=== PATIENT | male | born 1950 | race African-American/Black ===

== ENCOUNTER 2018-09-20 10:46 | Inpatient (IN) ==
[2018-09-20] MEDS ORDERED: ONDANSETRON 4 MG/2 ML VIAL IV STA (11:16)
[2018-09-20] MEDS ORDERED: fentaNYL 100 MCG/2 ML VIAL IV STA (11:20)
[2018-09-20 12:28] LABS: Basophils % 0.2 % (0.0-0.8); Hemoglobin 14.3 GM/DL (14.0-18.0); Immature Granulocytes % 0.5 %; Immature Granulocytes Absolute 0.06 #; Lymphocytes # 0.3 10*3/uL (1.4-4.0); Mean Corpuscular HGB Conc 33.3 GM/DL (32-36); Mean Corpuscular Hemoglobin 30 PG (27-34); Mean Corpuscular Volume 90.9 FL (87-102); Mean Platelet Volume 10.9 FL (9.6-12.0); Monocytes # 0.5 10*3/uL (0.11-0.8); Neutrophils # 10.3 10*3/uL (1.4-7.4); Neutrophils % 92.3 % (38.7-73.9); Platelet Count 149 T/CUMM (130-400); Red Blood Count 4.73 MC/CUMM (3.8-5.5); Red Cell Distribution Width 12.2 % (9.3-17.3); White Blood Count 11.1 T/CUMM (4-12)
[2018-09-20 12:39] LABS: PT Patient Result 10.5 SECS; Partial Thromboplastin Time 27.5 SECS (0-40)
[2018-09-20] MEDS: THIAMINE INJ 100 MG, FOLIC ACID INJ 1 MG, MULTIVITAMIN INJ 10 ML in SODIUM CHLORIDE 0.9... IV SCH (12:46)
[2018-09-20 12:50] LABS: Alanine Aminotransferase 20 U/L (16-61); Albumin 3.2 G/DL (3.4-5.0); Alkaline Phosphatase 98 U/L (45-117); Aspartate Amino Transferase 35 U/L (0-37); Blood Urea Nitrogen 18 MG/DL (7-18); CKMB % 1.3 %; Calcium 8.4 MG/DL (8.5-10.1); Glucose 152 MG/DL (74-106); Osmolality,Calculated 287.1 MOS/KG (273-304); Potassium 3.6 MMOL/L (3.5-5.1); Sodium 142 MMOL/L (136-145); Total Protein 7.7 G/DL (6.4-8.3)
[2018-09-20 13:04] LABS: Band Neutrophils 2 % (0-10); Eosinophils 1 % (0-10); Lymphocytes 1 % (20-55); Segmented Neutrophils 96 % (50-85); Total Cells Counted 100
[2018-09-20 13:05] LABS: Hypochromasia Slight; Platelet Estimate Adequate
[2018-09-20] MEDS ORDERED: DIAZEPAM 10 MG/2 ML SYRINGE IV PRN (13:16)
[2018-09-20] MEDS ORDERED: DIAZEPAM 5 MG TABLET PO PRN (13:16)
[2018-09-20] MEDS ORDERED: ONDANSETRON 4 MG/2 ML VIAL IV PRN (13:20)
[2018-09-20] MEDS ORDERED: MORPHINE 4 MG/1 ML VIAL IV PRN ×2 (13:20→14:44)
[2018-09-20] MEDS ORDERED: PROMETHAZINE 25 MG/1 ML VIAL IM PRN (13:20)
[2018-09-20] MEDS ORDERED: SODIUM CHLORIDE 0.9% 1,000 ML IV SCH (13:30)
[2018-09-20 14:04] LABS: Risk Ratio 5.39; Thyroid Stimulating Hormone 1.77 uIU/ml (0.358-3.74)
[2018-09-20 14:15] LABS: Folate 5.8 NG/ML (5.4-24.0)
[2018-09-20] MEDS ORDERED: MAGNESIUM HYDROXIDE SUSP 30 ML UDCUP PO PRN (14:44)
[2018-09-20] MEDS ORDERED: BISACODYL 5 MG TABLET PO PRN (14:44)
[2018-09-20] MEDS ORDERED: ALUM/MAG/SIMETH/LIDO VISC 1:1 30 ML BOTTLE PO PRN (14:44)
[2018-09-20 14:46] LABS: Apearance,Urine Slightly Hazy (Clear); Bacteria,Urine Occasional /HPF (Few); Bilirubin,Urine Negative (Negative); Blood, Urine Moderate mg/dL (Negative); Glucose,Urine (UA) Negative (Negative); Ketones,Urine Negative (Negative); Mucus,Urine Occasional /LPF (Occasional); Nitrite,Urine Negative (Negative); Protein,Urine >=500 MG/DL; RBC,Urine 2 /HPF (0-4); Sperm,Urine Few /HPF (Negative); Urine Color Yellow (Yellow); Urine Specific Gravity 1.016 (1.001-1.035); Urine Urobilinogen < 2.0 EU/DL (0.2-1.0); WBC,Urine 3 /HPF (0-6)
[2018-09-20 14:54] LABS: Barbiturates Screen,Urine Negative (Negative); Benzodiazepines Screen,Urine Negative (Negative); Cannabinoid Screen,Urine Positive (Negative); Opiate Screen,Urine Negative (Negative); Phencyclidine Screen,Urine Negative (Negative)
[2018-09-20] MEDS ORDERED: SODIUM CHLORIDE 0.45% 1,000 ML IV SCH (15:00)
[2018-09-20] MEDS ORDERED: chlordiazePOXIDE 25 MG CAPSULE PO SCH (16:00)
[2018-09-20] MEDS: SODIUM CHLORIDE 0.9% 1,000 ML IV SCH (17:03)
[2018-09-20] MEDS ORDERED: METOPROLOL TARTRATE 50 MG TABLET PO ONE (17:05)
[2018-09-20] MEDS ORDERED: METOPROLOL TARTRATE 50 MG TABLET PO SCH (21:00)
[2018-09-20] MEDS ORDERED: CARVEDILOL 3.125 MG TABLET PO SCH (21:00)
[2018-09-20] MEDS: hydroCHLOROthiazide 25 MG TABLET PO SCH (21:31)
[2018-09-20] MEDS: METOPROLOL TARTRATE 50 MG TABLET PO SCH (21:31)
[2018-09-20] MEDS: ATORVASTATIN 40 MG TABLET PO SCH (21:31)
[2018-09-20] MEDS: ENOXAPARIN 40 MG/0.4 ML SYRINGE SUBCUT SCH (21:31)
[2018-09-21] MEDS: SODIUM CHLORIDE 0.9% 1,000 ML IV SCH ×4 (01:05→18:19)
[2018-09-21 04:27] LABS: Basophils % 0.2 % (0.0-0.8); Eosinophils % 0.1 % (0.00-10.9); Hematocrit 39.9 VOL% (42.0-52.0); Immature Granulocytes % 0.3 %; Immature Granulocytes Absolute 0.03 #; Lymphocytes # 0.9 10*3/uL (1.4-4.0); Lymphocytes % 9.5 % (21.2-54.2); Mean Corpuscular HGB Conc 32.6 GM/DL (32-36); Mean Corpuscular Hemoglobin 30 PG (27-34); Mean Corpuscular Volume 91.9 FL (87-102); Mean Platelet Volume 11.3 FL (9.6-12.0); Monocytes # 0.6 10*3/uL (0.11-0.8); Monocytes % 6.5 % (1.7-12.7); Neutrophils # 8.3 10*3/uL (1.4-7.4); Neutrophils % 83.4 % (38.7-73.9); Platelet Count 132 T/CUMM (130-400); Red Blood Count 4.34 MC/CUMM (3.8-5.5); Red Cell Distribution Width 12.4 % (9.3-17.3); White Blood Count 9.9 T/CUMM (4-12)
[2018-09-21 04:55] LABS: Albumin 2.6 G/DL (3.4-5.0); Bilirubin,Total 1.4 MG/DL (0.2-1.0); Osmolality,Calculated 283.1 MOS/KG (273-304); Potassium 3.5 MMOL/L (3.5-5.1); Total Protein 6.7 G/DL (6.4-8.3)
[2018-09-21 05:05] LABS: Calcium 7.8 MG/DL (8.5-10.1); Potassium 3.7 MMOL/L (3.5-5.1)
[2018-09-21] MEDS ORDERED: LOSARTAN 25 MG TABLET PO SCH (09:00)
[2018-09-21] MEDS ORDERED: CLOPIDOGREL 75 MG TABLET PO SCH (09:00)
[2018-09-21] MEDS ORDERED: POTASSIUM CHLORIDE RIDER 10 MEQ in PREMIX 1 EACH IV PRN (11:37)
[2018-09-21] MEDS ORDERED: MAGNESIUM SULF RIDER 2 GM in PREMIX 1 EACH IV PRN (11:37)
[2018-09-21] MEDS ORDERED: DIAZEPAM 5 MG TABLET PO ONE (11:37)
[2018-09-21] MEDS ORDERED: diphenhydrAMINE CAP 25 MG CAPSULE PO ONE (11:37)
[2018-09-21] MEDS ORDERED: LIDOCAINE 1% 20 ML VIAL ONE (12:15)
[2018-09-21] MEDS ORDERED: HEPARIN/NACL 0.9% 2 UNITS/ML 1,000 ML IV ONE (12:15)
[2018-09-21] MEDS: MULTIVITAMIN (CENTRUM) TABLET PO SCH (12:22)
[2018-09-21] MEDS: METOPROLOL TARTRATE 50 MG TABLET PO SCH ×2 (12:22→22:27)
[2018-09-21] MEDS: ISOSORBIDE MONONITRATE 30 MG TABLET PO SCH (12:23)
[2018-09-21] MEDS: ASPIRIN EC 81 MG TABLET PO SCH (12:23)
[2018-09-21] MEDS: PANTOPRAZOLE 40 MG TABLET PO SCH (12:23)
[2018-09-21] MEDS: FOLIC ACID 1 MG TABLET PO SCH (12:34)
[2018-09-21] MEDS: ENOXAPARIN 40 MG/0.4 ML SYRINGE SUBCUT SCH ×2 (12:34→22:27)
[2018-09-21] MEDS: hydroCHLOROthiazide 25 MG TABLET PO SCH ×2 (12:41→22:25)
[2018-09-21] MEDS ORDERED: MIDAZOLAM 2 MG/2 ML VIAL ONE (13:01)
[2018-09-21] MEDS ORDERED: HYDROmorphone 2 MG/1 ML VIAL ONE (13:01)
[2018-09-21] MEDS ORDERED: ZALEPLON 5 MG CAPSULE PO PRN (13:39)
[2018-09-21] MEDS: THIAMINE INJ 100 MG, FOLIC ACID INJ 1 MG, MULTIVITAMIN INJ 10 ML in SODIUM CHLORIDE 0.9... IV SCH (14:22)
[2018-09-21] MEDS: oxyCODONE/ACETAMINOPHEN 5-325 MG TABLET PO PRN (22:26)
[2018-09-21] MEDS: ATORVASTATIN 40 MG TABLET PO SCH (22:26)
[2018-09-22] MEDS: SODIUM CHLORIDE 0.9% 1,000 ML IV SCH ×4 (04:20→17:14)
[2018-09-22 04:30] LABS: Basophils % 0.2 % (0.0-0.8); Hematocrit 38.2 VOL% (42.0-52.0); Hemoglobin 12.3 GM/DL (14.0-18.0); Immature Granulocytes % 0.5 %; Immature Granulocytes Absolute 0.08 #; Lymphocytes # 0.8 10*3/uL (1.4-4.0); Lymphocytes % 5.1 % (21.2-54.2); Mean Corpuscular HGB Conc 32.2 GM/DL (32-36); Mean Corpuscular Hemoglobin 30 PG (27-34); Mean Corpuscular Volume 93.4 FL (87-102); Mean Platelet Volume 10.7 FL (9.6-12.0); Monocytes # 0.7 10*3/uL (0.11-0.8); Monocytes % 4.1 % (1.7-12.7); Neutrophils # 14.3 10*3/uL (1.4-7.4); Neutrophils % 90.1 % (38.7-73.9); Platelet Count 112 T/CUMM (130-400); Red Blood Count 4.09 MC/CUMM (3.8-5.5); Red Cell Distribution Width 12.5 % (9.3-17.3); White Blood Count 15.8 T/CUMM (4-12)
[2018-09-22 04:56] LABS: Blood Urea Nitrogen 22 MG/DL (7-18); Glucose 93 MG/DL (74-106); Osmolality,Calculated 281.4 MOS/KG (273-304); Potassium 4.1 MMOL/L (3.5-5.1); Sodium 140 MMOL/L (136-145)
[2018-09-22 05:06] LABS: Troponin I 0.413 NG/ML (0.00-0.045)
[2018-09-22 05:13] LABS: Platelet Estimate Decreased; Polychromasia Few
[2018-09-22] MEDS: ENOXAPARIN 40 MG/0.4 ML SYRINGE SUBCUT SCH ×2 (08:15→20:25)
[2018-09-22] MEDS: hydroCHLOROthiazide 25 MG TABLET PO SCH (09:10)
[2018-09-22] MEDS: MULTIVITAMIN (CENTRUM) TABLET PO SCH (09:10)
[2018-09-22] MEDS: PANTOPRAZOLE 40 MG TABLET PO SCH (09:10)
[2018-09-22] MEDS: FOLIC ACID 1 MG TABLET PO SCH (09:11)
[2018-09-22] MEDS: METOPROLOL TARTRATE 50 MG TABLET PO SCH ×2 (09:11→20:26)
[2018-09-22] MEDS: ASPIRIN EC 81 MG TABLET PO SCH (09:11)
[2018-09-22] MEDS: ISOSORBIDE MONONITRATE 30 MG TABLET PO SCH (09:11)
[2018-09-22] MEDS: oxyCODONE/ACETAMINOPHEN 5-325 MG TABLET PO PRN (09:15)
[2018-09-22 10:24] LABS: Albumin 2.3 G/DL (3.4-5.0); Bilirubin,Total 1.5 MG/DL (0.2-1.0); Calcium 7.9 MG/DL (8.5-10.1); Osmolality,Calculated 280.4 MOS/KG (273-304); Potassium 4.2 MMOL/L (3.5-5.1); Total Protein 6.9 G/DL (6.4-8.3)
[2018-09-22] MEDS ORDERED: ceFAZolin 1,000 MG VIAL ONE (15:29)
[2018-09-22] MEDS ORDERED: PROPOFOL 200 MG/20 ML VIAL IV ONE (17:06)
[2018-09-22] MEDS ORDERED: PHENYLEPHRINE DRIP 20 MG/250 ML PREMIX IV ONE (17:06)
[2018-09-22] MEDS ORDERED: SEVOFLURANE 1 UNIT/15 MINUTE INH ONE (17:06)
[2018-09-22] MEDS ORDERED: fentaNYL 100 MCG/2 ML VIAL ONE (17:06)
[2018-09-22] MEDS ORDERED: PHENYLEPHRINE 1 MG/10 ML SYRINGE IV ONE (17:07)
[2018-09-22] MEDS ORDERED: ONDANSETRON 4 MG/2 ML VIAL ONE (17:07)
[2018-09-22] MEDS ORDERED: ETOMIDATE 40 MG/20 ML VIAL IV ONE (17:07)
[2018-09-22] MEDS: THIAMINE INJ 100 MG, FOLIC ACID INJ 1 MG, MULTIVITAMIN INJ 10 ML in SODIUM CHLORIDE 0.9... IV SCH (19:11)
[2018-09-22] MEDS: ATORVASTATIN 40 MG TABLET PO SCH (20:26)
[2018-09-23] MEDS: SODIUM CHLORIDE 0.9% 1,000 ML IV SCH ×4 (04:37→15:47)
[2018-09-23 04:55] LABS: Basophils % 0.3 % (0.0-0.8); Eosinophils % 0.1 % (0.00-10.9); Hematocrit 35.2 VOL% (42.0-52.0); Hemoglobin 11.3 GM/DL (14.0-18.0); Immature Granulocytes % 0.6 %; Immature Granulocytes Absolute 0.07 #; Lymphocytes # 0.7 10*3/uL (1.4-4.0); Lymphocytes % 6.4 % (21.2-54.2); Mean Corpuscular HGB Conc 32.1 GM/DL (32-36); Mean Corpuscular Hemoglobin 30 PG (27-34); Mean Corpuscular Volume 92.1 FL (87-102); Mean Platelet Volume 11.7 FL (9.6-12.0); Monocytes # 0.6 10*3/uL (0.11-0.8); Monocytes % 5.4 % (1.7-12.7); Neutrophils # 10.1 10*3/uL (1.4-7.4); Neutrophils % 87.2 % (38.7-73.9); Platelet Count 115 T/CUMM (130-400); Red Blood Count 3.82 MC/CUMM (3.8-5.5); Red Cell Distribution Width 12.6 % (9.3-17.3); White Blood Count 11.6 T/CUMM (4-12)
[2018-09-23 05:11] LABS: Albumin 2.1 G/DL (3.4-5.0); Calcium 7.7 MG/DL (8.5-10.1); Osmolality,Calculated 286.3 MOS/KG (273-304); Potassium 3.5 MMOL/L (3.5-5.1); Total Protein 6.4 G/DL (6.4-8.3)
[2018-09-23 05:55] LABS: Band Neutrophils 1 % (0-10); Hypochromasia 1+; Lymphocytes 5 % (20-55); Microcytosis 1+; Segmented Neutrophils 90 % (50-85); Total Cells Counted 100
[2018-09-23 05:56] LABS: Platelet Estimate Adequate
[2018-09-23] MEDS: METOPROLOL TARTRATE 50 MG TABLET PO SCH ×2 (07:55→10:27)
[2018-09-23] MEDS ORDERED: METOPROLOL TARTRATE 5 MG/5 ML VIAL IV ONE ×2 (07:59→08:07)
[2018-09-23 10:18] LABS: Hepatitis B Surface Ab Result Positive; Hepatitis B Surface Ag Quant < 0.10 Index; Hepatitis B Surface Ag Result Negative (Negative)
[2018-09-23] MEDS: POTASSIUM CHLORIDE 20 MEQ TABLET PO PRN (10:26)
[2018-09-23] MEDS: MULTIVITAMIN (CENTRUM) TABLET PO SCH (10:26)
[2018-09-23] MEDS: FOLIC ACID 1 MG TABLET PO SCH (10:26)
[2018-09-23] MEDS: ISOSORBIDE MONONITRATE 30 MG TABLET PO SCH (10:26)
[2018-09-23] MEDS: ASPIRIN EC 81 MG TABLET PO SCH (10:27)
[2018-09-23] MEDS: ENOXAPARIN 40 MG/0.4 ML SYRINGE SUBCUT SCH ×2 (10:27→21:09)
[2018-09-23] MEDS: PANTOPRAZOLE 40 MG TABLET PO SCH (10:28)
[2018-09-23] MEDS: ASCORBIC ACID 500 MG TABLET PO SCH ×2 (10:32→21:09)
[2018-09-23] MEDS ORDERED: METOPROLOL TARTRATE 50 MG TABLET PO ONE (10:57)
[2018-09-23] MEDS: FUROSEMIDE 40 MG/4 ML VIAL IV SCH (11:21)
[2018-09-23] MEDS ORDERED: SODIUM CHLORIDE 0.9% 1,000 ML IV SCH (11:30)
[2018-09-23 11:38] LABS: HIV Antigen/Antibody Result Nonreactive (Nonreactive)
[2018-09-23] MEDS: cefTRIAXone 1,000 MG in SYRINGE 1 EACH IV SCH (12:52)
[2018-09-23 13:46] LABS: Rapid Plasma Reagin Confirm NONREACTIVE (Nonreactive)
[2018-09-23] MEDS: ATORVASTATIN 40 MG TABLET PO SCH (21:09)
[2018-09-23] MEDS: METOPROLOL TARTRATE 100 MG TABLET PO SCH (21:09)
[2018-09-24 04:35] LABS: Basophils % 0.2 % (0.0-0.8); Eosinophils # 0.1 10*3/uL (0.0-0.87); Eosinophils % 1.2 % (0.00-10.9); Hematocrit 32.8 VOL% (42.0-52.0); Hemoglobin 10.6 GM/DL (14.0-18.0); Immature Granulocytes % 0.5 %; Immature Granulocytes Absolute 0.06 #; Lymphocytes # 1.2 10*3/uL (1.4-4.0); Lymphocytes % 11.3 % (21.2-54.2); Mean Corpuscular HGB Conc 32.3 GM/DL (32-36); Mean Corpuscular Hemoglobin 30 PG (27-34); Mean Corpuscular Volume 91.4 FL (87-102); Mean Platelet Volume 11.4 FL (9.6-12.0); Monocytes # 0.8 10*3/uL (0.11-0.8); Monocytes % 7.5 % (1.7-12.7); Neutrophils # 8.7 10*3/uL (1.4-7.4); Neutrophils % 79.3 % (38.7-73.9); Platelet Count 121 T/CUMM (130-400); Red Blood Count 3.59 MC/CUMM (3.8-5.5); Red Cell Distribution Width 12.8 % (9.3-17.3); White Blood Count 10.9 T/CUMM (4-12)
[2018-09-24 04:57] LABS: Calcium 7.8 MG/DL (8.5-10.1); Osmolality,Calculated 288.3 MOS/KG (273-304); Potassium 3.4 MMOL/L (3.5-5.1); Total Protein 6.7 G/DL (6.4-8.3)
[2018-09-24] MEDS: SODIUM CHLORIDE 0.9% 1,000 ML IV SCH ×3 (05:10→22:16)
[2018-09-24] MEDS: PANTOPRAZOLE 40 MG TABLET PO SCH (08:56)
[2018-09-24] MEDS: FOLIC ACID 1 MG TABLET PO SCH (08:56)
[2018-09-24] MEDS: MULTIVITAMIN (CENTRUM) TABLET PO SCH (08:57)
[2018-09-24] MEDS: ISOSORBIDE MONONITRATE 30 MG TABLET PO SCH (08:57)
[2018-09-24] MEDS: ENOXAPARIN 40 MG/0.4 ML SYRINGE SUBCUT SCH ×2 (08:57→22:14)
[2018-09-24] MEDS: FUROSEMIDE 40 MG/4 ML VIAL IV SCH (08:57)
[2018-09-24] MEDS: METOPROLOL TARTRATE 100 MG TABLET PO SCH ×2 (08:57→22:14)
[2018-09-24] MEDS: ASPIRIN EC 81 MG TABLET PO SCH (08:57)
[2018-09-24] MEDS: ASCORBIC ACID 500 MG TABLET PO SCH ×2 (08:57→22:14)
[2018-09-24] MEDS: cefTRIAXone 1,000 MG in SYRINGE 1 EACH IV SCH (14:39)
[2018-09-24] MEDS: POTASSIUM CHLORIDE 20 MEQ TABLET PO PRN ×2 (15:35→17:43)
[2018-09-24] MEDS: ATORVASTATIN 40 MG TABLET PO SCH (22:14)
[2018-09-25 04:21] LABS: Osmolality,Calculated 288.3 MOS/KG (273-304)
[2018-09-25] MEDS ORDERED: DILTIAZEM 50 MG/10 ML VIAL IV ONE (08:53)
[2018-09-25] MEDS ORDERED: dilTIAZem Drip 125 MG/125 ML PREMIX IV ONE (08:54)
[2018-09-25] MEDS: dilTIAZem Drip 125 MG/125 ML PREMIX IV SCH (09:10)
[2018-09-25] MEDS: FOLIC ACID 1 MG TABLET PO SCH (09:20)
[2018-09-25] MEDS: ASCORBIC ACID 500 MG TABLET PO SCH ×2 (09:20→21:56)
[2018-09-25] MEDS: PANTOPRAZOLE 40 MG TABLET PO SCH (09:20)
[2018-09-25] MEDS: ISOSORBIDE MONONITRATE 30 MG TABLET PO SCH (09:20)
[2018-09-25] MEDS: MULTIVITAMIN (CENTRUM) TABLET PO SCH (09:20)
[2018-09-25] MEDS: ASPIRIN EC 81 MG TABLET PO SCH (09:20)
[2018-09-25] MEDS: METOPROLOL TARTRATE 100 MG TABLET PO SCH ×2 (09:20→21:56)
[2018-09-25] MEDS: APIXABAN 2.5 MG TABLET PO SCH ×2 (09:20→21:57)
[2018-09-25] MEDS: FUROSEMIDE 40 MG/4 ML VIAL IV SCH (09:24)
[2018-09-25] MEDS: SODIUM CHLORIDE 0.9% 1,000 ML IV SCH ×3 (10:58→21:58)
[2018-09-25 12:07] LABS: Apearance,Urine Slightly Hazy (Clear); Bilirubin,Urine Negative (Negative); Blood, Urine Large mg/dL (Negative); Glucose,Urine (UA) Negative (Negative); Ketones,Urine Negative (Negative); Nitrite,Urine Negative (Negative); Protein,Urine 100 MG/DL; RBC,Urine 213 /HPF (0-4); Urine Color Yellow (Yellow); Urine Specific Gravity 1.008 (1.001-1.035); Urine Urobilinogen < 2.0 EU/DL (0.2-1.0); WBC,Urine 7 /HPF (0-6)
[2018-09-25] MEDS: cefTRIAXone 1,000 MG in SYRINGE 1 EACH IV SCH (14:44)
[2018-09-25] MEDS: ATORVASTATIN 40 MG TABLET PO SCH (21:57)
[2018-09-26 05:09] LABS: Basophils % 0.2 % (0.0-0.8); Eosinophils # 0.1 10*3/uL (0.0-0.87); Eosinophils % 0.9 % (0.00-10.9); Hematocrit 29.8 VOL% (42.0-52.0); Hemoglobin 9.6 GM/DL (14.0-18.0); Immature Granulocytes % 2.7 %; Immature Granulocytes Absolute 0.38 #; Lymphocytes # 1.8 10*3/uL (1.4-4.0); Lymphocytes % 12.5 % (21.2-54.2); Mean Corpuscular HGB Conc 32.2 GM/DL (32-36); Mean Corpuscular Hemoglobin 30 PG (27-34); Mean Platelet Volume 11.4 FL (9.6-12.0); Monocytes # 1.4 10*3/uL (0.11-0.8); Monocytes % 9.9 % (1.7-12.7); Neutrophils # 10.3 10*3/uL (1.4-7.4); Neutrophils % 73.8 % (38.7-73.9); Platelet Count 165 T/CUMM (130-400); Red Blood Count 3.24 MC/CUMM (3.8-5.5); Red Cell Distribution Width 13.2 % (9.3-17.3)
[2018-09-26 05:35] LABS: Calcium 8.1 MG/DL (8.5-10.1); Osmolality,Calculated 290.3 MOS/KG (273-304); Potassium 3.8 MMOL/L (3.5-5.1)
[2018-09-26] MEDS: SODIUM CHLORIDE 0.9% 1,000 ML IV SCH ×3 (10:09→20:48)
[2018-09-26] MEDS: FOLIC ACID 1 MG TABLET PO SCH (10:11)
[2018-09-26] MEDS: MULTIVITAMIN (CENTRUM) TABLET PO SCH (10:11)
[2018-09-26] MEDS: ASPIRIN EC 81 MG TABLET PO SCH (10:11)
[2018-09-26] MEDS: ASCORBIC ACID 500 MG TABLET PO SCH ×2 (10:11→20:55)
[2018-09-26] MEDS: dilTIAZem Drip 125 MG/125 ML PREMIX IV SCH (10:11)
[2018-09-26] MEDS: METOPROLOL TARTRATE 100 MG TABLET PO SCH ×2 (10:11→20:55)
[2018-09-26] MEDS: APIXABAN 2.5 MG TABLET PO SCH ×2 (10:12→20:55)
[2018-09-26] MEDS: ISOSORBIDE MONONITRATE 30 MG TABLET PO SCH (10:12)
[2018-09-26] MEDS: PANTOPRAZOLE 40 MG TABLET PO SCH (10:18)
[2018-09-26] MEDS: cefTRIAXone 1,000 MG in SYRINGE 1 EACH IV SCH (12:25)
[2018-09-26] MEDS: ATORVASTATIN 40 MG TABLET PO SCH (20:54)
[2018-09-27 04:26] LABS: Basophils % 0.3 % (0.0-0.8); Eosinophils # 0.1 10*3/uL (0.0-0.87); Eosinophils % 0.8 % (0.00-10.9); Hematocrit 30.4 VOL% (42.0-52.0); Hemoglobin 9.5 GM/DL (14.0-18.0); Immature Granulocytes % 4.3 %; Immature Granulocytes Absolute 0.57 #; Lymphocytes # 1.4 10*3/uL (1.4-4.0); Lymphocytes % 10.9 % (21.2-54.2); Mean Corpuscular HGB Conc 31.3 GM/DL (32-36); Mean Corpuscular Hemoglobin 29 PG (27-34); Mean Corpuscular Volume 94.1 FL (87-102); Mean Platelet Volume 10.9 FL (9.6-12.0); Monocytes # 1.1 10*3/uL (0.11-0.8); Monocytes % 8.5 % (1.7-12.7); Neutrophils # 9.9 10*3/uL (1.4-7.4); Neutrophils % 75.2 % (38.7-73.9); Platelet Count 205 T/CUMM (130-400); Red Blood Count 3.23 MC/CUMM (3.8-5.5); Red Cell Distribution Width 13.6 % (9.3-17.3); White Blood Count 13.2 T/CUMM (4-12)
[2018-09-27 04:52] LABS: Calcium 7.9 MG/DL (8.5-10.1)
[2018-09-27 05:50] LABS: Band Neutrophils 1 % (0-10); Eosinophils 1 % (0-10); Lymphocytes 11 % (20-55); Platelet Estimate Normal; Segmented Neutrophils 83 % (50-85); Total Cells Counted 100
[2018-09-27] MEDS: SODIUM CHLORIDE 0.9% 1,000 ML IV SCH (07:16)
[2018-09-27] MEDS: ASCORBIC ACID 500 MG TABLET PO SCH ×2 (08:32→21:37)
[2018-09-27] MEDS: APIXABAN 2.5 MG TABLET PO SCH ×2 (08:32→21:37)
[2018-09-27] MEDS: FOLIC ACID 1 MG TABLET PO SCH (08:32)
[2018-09-27] MEDS: ISOSORBIDE MONONITRATE 30 MG TABLET PO SCH (08:32)
[2018-09-27] MEDS: ASPIRIN EC 81 MG TABLET PO SCH (08:32)
[2018-09-27] MEDS: MULTIVITAMIN (CENTRUM) TABLET PO SCH (08:32)
[2018-09-27] MEDS: PANTOPRAZOLE 40 MG TABLET PO SCH (08:32)
[2018-09-27] MEDS: METOPROLOL TARTRATE 100 MG TABLET PO SCH ×2 (08:33→21:37)
[2018-09-27] MEDS: dilTIAZem Drip 125 MG/125 ML PREMIX IV SCH (08:37)
[2018-09-27] MEDS: cefTRIAXone 1,000 MG in SYRINGE 1 EACH IV SCH (13:40)
[2018-09-27] MEDS: DILTIAZEM CD 120 MG CAPSULE PO SCH ×2 (13:40→21:36)
[2018-09-27] MEDS ORDERED: ENOXAPARIN 30 MG/0.3 ML SYRINGE SUBCUT SCH (21:00)
[2018-09-27] MEDS: ATORVASTATIN 40 MG TABLET PO SCH (21:37)
[2018-09-28 05:35] LABS: Basophils % 0.3 % (0.0-0.8); Eosinophils # 0.1 10*3/uL (0.0-0.87); Eosinophils % 0.9 % (0.00-10.9); Hematocrit 27.5 VOL% (42.0-52.0); Hemoglobin 8.4 GM/DL (14.0-18.0); Immature Granulocytes % 4.9 %; Immature Granulocytes Absolute 0.68 #; Lymphocytes # 1.6 10*3/uL (1.4-4.0); Lymphocytes % 11.4 % (21.2-54.2); Mean Corpuscular HGB Conc 30.5 GM/DL (32-36); Mean Corpuscular Hemoglobin 29 PG (27-34); Mean Corpuscular Volume 94.8 FL (87-102); Mean Platelet Volume 10.7 FL (9.6-12.0); Monocytes # 1.1 10*3/uL (0.11-0.8); Monocytes % 8.2 % (1.7-12.7); Neutrophils # 10.3 10*3/uL (1.4-7.4); Neutrophils % 74.3 % (38.7-73.9); Platelet Count 252 T/CUMM (130-400); Red Cell Distribution Width 13.7 % (9.3-17.3); White Blood Count 13.9 T/CUMM (4-12)
[2018-09-28 05:53] LABS: Calcium 8.2 MG/DL (8.5-10.1); Osmolality,Calculated 298.8 MOS/KG (273-304); Potassium 4.1 MMOL/L (3.5-5.1)
[2018-09-28 07:34] LABS: Eosinophils 1 % (0-10); Lymphocytes 9 % (20-55); Segmented Neutrophils 79 % (50-85)
[2018-09-28 07:35] LABS: Platelet Estimate Normal; Polychromasia Few
[2018-09-28 07:36] LABS: Hypochromasia 1+
[2018-09-28 07:37] LABS: Total Cells Counted 100
[2018-09-28] MEDS: ASPIRIN EC 81 MG TABLET PO SCH (09:36)
[2018-09-28] MEDS: FOLIC ACID 1 MG TABLET PO SCH (09:36)
[2018-09-28] MEDS: ASCORBIC ACID 500 MG TABLET PO SCH ×2 (09:36→20:54)
[2018-09-28] MEDS: APIXABAN 2.5 MG TABLET PO SCH ×2 (09:36→20:59)
[2018-09-28] MEDS: METOPROLOL TARTRATE 100 MG TABLET PO SCH ×2 (09:37→20:55)
[2018-09-28] MEDS: MULTIVITAMIN (CENTRUM) TABLET PO SCH (09:37)
[2018-09-28] MEDS: PANTOPRAZOLE 40 MG TABLET PO SCH (09:37)
[2018-09-28] MEDS: DILTIAZEM CD 120 MG CAPSULE PO SCH ×2 (09:37→20:54)
[2018-09-28] MEDS: ISOSORBIDE MONONITRATE 30 MG TABLET PO SCH (09:37)
[2018-09-28] MEDS: cefTRIAXone 1,000 MG in SYRINGE 1 EACH IV SCH (13:19)
[2018-09-28] MEDS: ATORVASTATIN 40 MG TABLET PO SCH (20:54)
[2018-09-29 05:14] LABS: Basophils % 0.2 % (0.0-0.8); Eosinophils # 0.2 10*3/uL (0.0-0.87); Eosinophils % 1.3 % (0.00-10.9); Hematocrit 28.9 VOL% (42.0-52.0); Hemoglobin 8.9 GM/DL (14.0-18.0); Immature Granulocytes % 4.5 %; Immature Granulocytes Absolute 0.55 #; Lymphocytes # 1.6 10*3/uL (1.4-4.0); Lymphocytes % 12.7 % (21.2-54.2); Mean Corpuscular HGB Conc 30.8 GM/DL (32-36); Mean Corpuscular Hemoglobin 30 PG (27-34); Mean Platelet Volume 10.6 FL (9.6-12.0); Monocytes # 0.8 10*3/uL (0.11-0.8); Monocytes % 6.5 % (1.7-12.7); NRBC # 0.02 10*3/uL; Neutrophils # 9.2 10*3/uL (1.4-7.4); Neutrophils % 74.8 % (38.7-73.9); Platelet Count 308 T/CUMM (130-400); Red Blood Count 3.01 MC/CUMM (3.8-5.5); Red Cell Distribution Width 13.8 % (9.3-17.3); White Blood Count 12.2 T/CUMM (4-12)
[2018-09-29 05:30] LABS: Calcium 8.2 MG/DL (8.5-10.1); Osmolality,Calculated 300.7 MOS/KG (273-304); Potassium 4.2 MMOL/L (3.5-5.1)
[2018-09-29 05:37] LABS: Band Neutrophils 2 % (0-10); Eosinophils 3 % (0-10); Hypochromasia Slight; Lymphocytes 10 % (20-55); Myelocytes 1 %; Segmented Neutrophils 76 % (50-85); Total Cells Counted 100
[2018-09-29 05:38] LABS: Macrocytosis Slight
[2018-09-29] MEDS: DILTIAZEM CD 120 MG CAPSULE PO SCH ×2 (09:01→21:41)
[2018-09-29] MEDS: FOLIC ACID 1 MG TABLET PO SCH (09:01)
[2018-09-29] MEDS: MULTIVITAMIN (CENTRUM) TABLET PO SCH (09:01)
[2018-09-29] MEDS: ASPIRIN EC 81 MG TABLET PO SCH (09:01)
[2018-09-29] MEDS: ISOSORBIDE MONONITRATE 30 MG TABLET PO SCH (09:02)
[2018-09-29] MEDS: APIXABAN 2.5 MG TABLET PO SCH ×2 (09:02→21:42)
[2018-09-29] MEDS: METOPROLOL TARTRATE 100 MG TABLET PO SCH ×2 (09:02→21:43)
[2018-09-29] MEDS: PANTOPRAZOLE 40 MG TABLET PO SCH (09:02)
[2018-09-29] MEDS: ASCORBIC ACID 500 MG TABLET PO SCH ×2 (09:02→21:41)
[2018-09-29] MEDS ORDERED: SODIUM CHLORIDE 0.9% 100 ML IV ONE (12:10)
[2018-09-29] MEDS: cefTRIAXone 1,000 MG in SYRINGE 1 EACH IV SCH (15:54)
[2018-09-29] MEDS: ATORVASTATIN 40 MG TABLET PO SCH (21:41)
[2018-09-30 04:57] LABS: Basophils # 0.1 10*3/uL (0.0-0.2); Basophils % 0.4 % (0.0-0.8); Eosinophils # 0.3 10*3/uL (0.0-0.87); Hematocrit 28.1 VOL% (42.0-52.0); Hemoglobin 8.5 GM/DL (14.0-18.0); Immature Granulocytes % 4.1 %; Immature Granulocytes Absolute 0.52 #; Lymphocytes # 1.7 10*3/uL (1.4-4.0); Lymphocytes % 13.1 % (21.2-54.2); Mean Corpuscular HGB Conc 30.2 GM/DL (32-36); Mean Corpuscular Hemoglobin 29 PG (27-34); Mean Corpuscular Volume 96.9 FL (87-102); Mean Platelet Volume 10.5 FL (9.6-12.0); Monocytes # 0.8 10*3/uL (0.11-0.8); Monocytes % 6.5 % (1.7-12.7); NRBC # 0.05 10*3/uL; Neutrophils # 9.3 10*3/uL (1.4-7.4); Neutrophils % 73.9 % (38.7-73.9); Platelet Count 372 T/CUMM (130-400); Red Cell Distribution Width 14.1 % (9.3-17.3); White Blood Count 12.6 T/CUMM (4-12)
[2018-09-30 05:18] LABS: Eosinophils 2 % (0-10); Hypochromasia 1+; Lymphocytes 10 % (20-55); Myelocytes 1 %; Platelet Estimate Adequate; Segmented Neutrophils 83 % (50-85); Total Cells Counted 100
[2018-09-30 05:19] LABS: Macrocytosis Slight; Polychromasia Slight
[2018-09-30 05:23] LABS: Calcium 8.3 MG/DL (8.5-10.1); Osmolality,Calculated 300.7 MOS/KG (273-304); Potassium 4.4 MMOL/L (3.5-5.1)
[2018-09-30] MEDS: ACETAMINOPHEN 325 MG TABLET PO PRN ×2 (06:22→08:56)
[2018-09-30] MEDS: DILTIAZEM CD 120 MG CAPSULE PO SCH (08:52)
[2018-09-30] MEDS: ASPIRIN EC 81 MG TABLET PO SCH (08:53)
[2018-09-30] MEDS: APIXABAN 2.5 MG TABLET PO SCH (08:53)
[2018-09-30] MEDS: FOLIC ACID 1 MG TABLET PO SCH (08:53)
[2018-09-30] MEDS: MULTIVITAMIN (CENTRUM) TABLET PO SCH (08:53)
[2018-09-30] MEDS: ASCORBIC ACID 500 MG TABLET PO SCH (08:54)
[2018-09-30] MEDS: ISOSORBIDE MONONITRATE 30 MG TABLET PO SCH (08:54)
[2018-09-30] MEDS: METOPROLOL TARTRATE 100 MG TABLET PO SCH (08:54)
[2018-09-30] MEDS: PANTOPRAZOLE 40 MG TABLET PO SCH (08:54)
[2018-09-30 11:12] VITALS: BP 103/69
[2018-09-30] MEDS: cefTRIAXone 1,000 MG in SYRINGE 1 EACH IV SCH (13:39)
[2018-10-01] MEDS ORDERED: CEFUROXIME 500 MG TABLET PO SCH (09:00)
== END 2018-09-30 15:57 | disposition swing bed (61) | DRG 480 ==
LOC: EDBD → EDUNIT# → N.ED 10:46 → SUATTDRO 13:20 → N.EDINP 13:20 → N.TELEN 15:28
PROVIDERS: ADMIT Hospitalist; ATTEND Internal Medicine
PROC: CLCCHCL (ICD-10-PCS; 2018-09-21 13:15)

== ENCOUNTER 2019-12-14 13:44 | Inpatient (IN) ==
[2019-12-14] MEDS ORDERED: SODIUM CHLORIDE 0.9% 500 ML IV STA (15:00)
[2019-12-14 15:10] LABS: Basophils % 0.1 % (0.0-0.8); Eosinophils % 0.1 % (0.00-10.9); Hematocrit 39.5 VOL% (42.0-52.0); Immature Granulocytes % 1.1 %; Immature Granulocytes Absolute 0.11 #; Lymphocytes # 0.8 10*3/uL (1.4-4.0); Lymphocytes % 8.7 % (21.2-54.2); Mean Corpuscular HGB Conc 30.4 GM/DL (32-36); Mean Corpuscular Volume 96.1 FL (87-102); Mean Platelet Volume 11.8 FL (9.6-12.0); Monocytes % 3.2 % (1.7-12.7); Neutrophils % 86.8 % (38.7-73.9); Platelet Count 169 T/CUMM (130-400); Red Blood Count 4.11 MC/CUMM (3.8-5.5); Red Cell Distribution Width 12.1 % (9.3-17.3); White Blood Count 9.6 T/CUMM (4-12)
[2019-12-14 15:22] LABS: Alanine Aminotransferase 198 U/L (16-61); Albumin 2.2 G/DL (3.4-5.0); Alkaline Phosphatase 84 U/L (45-117); Aspartate Amino Transferase 209 U/L (0-37); Blood Urea Nitrogen 89 MG/DL (7-18); Calcium 8.3 MG/DL (8.5-10.1); Estimated Glom Filtration Rate 14 ML/MIN; Glucose 134 MG/DL (74-106); Osmolality,Calculated 314.8 MOS/KG (273-304); Total Protein 7.8 G/DL (6.4-8.3)
[2019-12-14 15:23] LABS: Troponin I 0.051 NG/ML (0.00-0.045)
[2019-12-14 16:07] LABS: Amorphous Crystals,Urine Occasional /HPF (Few); Apearance,Urine CLOUDY (Clear); Bacteria,Urine Occasional /HPF (Few); Bilirubin,Urine Negative (Negative); Blood, Urine Small mg/dL (Negative); Glucose,Urine (UA) Negative (Negative); Ketones,Urine Negative (Negative); Mucus,Urine Occasional /LPF (Occasional); Nitrite,Urine Negative (Negative); Protein,Urine 100 MG/DL; RBC,Urine 2 /HPF (0-4); Squamous Epithelial Cell,Urine Occasional /HPF (0-10); Urine Color Amber (Yellow); Urine Specific Gravity 1.015 (1.001-1.035); Urine Urobilinogen < 2.0 EU/DL (0.2-1.0)
[2019-12-14 16:26] LABS: Barbiturates Screen,Urine Negative (Negative); Benzodiazepines Screen,Urine Negative (Negative); Cannabinoid Screen,Urine Negative (Negative); Opiate Screen,Urine Negative (Negative); Phencyclidine Screen,Urine Negative (Negative)
[2019-12-14] MEDS ORDERED: GLUCAGON 1 MG VIAL IM PRN (16:52)
[2019-12-14] MEDS ORDERED: ACETAMINOPHEN 325 MG TABLET PO PRN (16:52)
[2019-12-14] MEDS ORDERED: DEXTROSE 10% 250 ML BAG IV PRN (16:52)
[2019-12-14] MEDS ORDERED: ONDANSETRON 4 MG/2 ML VIAL IV PRN (16:52)
[2019-12-14] MEDS ORDERED: MAGNESIUM HYDROXIDE SUSP 30 ML UDCUP PO PRN (16:57)
[2019-12-14] MEDS ORDERED: TAMSULOSIN 0.4 MG CAPSULE PO SCH (18:00)
[2019-12-14] MEDS ORDERED: ATORVASTATIN 40 MG TABLET PO SCH (20:00)
[2019-12-14] MEDS ORDERED: DILTIAZEM CD 120 MG CAPSULE PO SCH (20:00)
[2019-12-14] MEDS ORDERED: APIXABAN 2.5 MG TABLET PO SCH (20:00)
[2019-12-14] MEDS ORDERED: HYDROXYCHLOROQUINE 200 MG TABLET PO SCH (21:00)
[2019-12-14] MEDS: GABAPENTIN 100 MG CAPSULE PO SCH (22:00)
[2019-12-14] MEDS: SODIUM BICARB INJ 50 MEQ in SODIUM CHLORIDE 0.45% 1,000 ML IV SCH (22:00)
[2019-12-15] MEDS ORDERED: PANTOPRAZOLE 40 MG TABLET PO SCH (09:00)
[2019-12-15] MEDS: CITALOPRAM 20 MG TABLET PO SCH (09:24)
[2019-12-15] MEDS: APIXABAN 2.5 MG TABLET PO SCH ×2 (09:24→21:00)
[2019-12-15] MEDS: DILTIAZEM CD 120 MG CAPSULE PO SCH ×2 (09:24→21:00)
[2019-12-15] MEDS: GABAPENTIN 100 MG CAPSULE PO SCH ×4 (09:24→21:00)
[2019-12-15] MEDS: FOLIC ACID 1 MG TABLET PO SCH (09:25)
[2019-12-15] MEDS: ISOSORBIDE MONONITRATE 30 MG TABLET PO SCH (09:25)
[2019-12-15 12:45] LABS: Basophils % 0.1 % (0.0-0.8); Eosinophils % 0.1 % (0.00-10.9); Hematocrit 34.2 VOL% (42.0-52.0); Hemoglobin 10.4 GM/DL (14.0-18.0); Immature Granulocytes % 0.9 %; Immature Granulocytes Absolute 0.09 #; Lymphocytes % 9.4 % (21.2-54.2); Mean Corpuscular HGB Conc 30.4 GM/DL (32-36); Mean Corpuscular Volume 96.9 FL (87-102); Mean Platelet Volume 11.4 FL (9.6-12.0); Monocytes % 3.2 % (1.7-12.7); Neutrophils % 86.3 % (38.7-73.9); Platelet Count 198 T/CUMM (130-400); Red Blood Count 3.53 MC/CUMM (3.8-5.5); Red Cell Distribution Width 12.1 % (9.3-17.3); White Blood Count 10.5 T/CUMM (4-12)
[2019-12-15 13:12] LABS: Albumin 2.2 G/DL (3.4-5.0); Bilirubin,Total 1.8 MG/DL (0.2-1.0); Calcium 8.6 MG/DL (8.5-10.1); Osmolality,Calculated 320.7 MOS/KG (273-304); Total Protein 7.9 G/DL (6.4-8.3)
[2019-12-15 13:31] LABS: Ferritin 6791.1 ng/ml (26-388)
[2019-12-15 13:36] LABS: Band Neutrophils 1 % (0-10); Lymphocytes 4 % (20-55); Platelet Estimate Normal; Reactive Lymphocytes Slight; Segmented Neutrophils 92 % (50-85); Total Cells Counted 100
[2019-12-15] MEDS: SODIUM BICARB INJ 50 MEQ in SODIUM CHLORIDE 0.45% 1,000 ML IV SCH ×2 (17:13→17:25)
[2019-12-15] MEDS ORDERED: HYDROXYCHLOROQUINE 200 MG TABLET PO SCH (21:00)
[2019-12-15] MEDS: ATORVASTATIN 40 MG TABLET PO SCH (21:00)
[2019-12-15] MEDS: TAMSULOSIN 0.4 MG CAPSULE PO SCH (21:00)
[2019-12-16] MEDS: SODIUM BICARB INJ 50 MEQ in SODIUM CHLORIDE 0.45% 1,000 ML IV SCH (01:50)
[2019-12-16 06:00] LABS: Calcium 8.7 MG/DL (8.5-10.1); Osmolality,Calculated 320.6 MOS/KG (273-304)
[2019-12-16 08:38] LABS: Hepatitis B Core IgM Quant 0.54 Index; Hepatitis B Surface Ag Quant 0.16 Index; Hepatitis B Surface Ag Result Negative (Negative); Hepatitis C Virus Ab Quant 0.12 Index; Hepatitis C Virus Ab Result Negative (Negative)
[2019-12-16] MEDS: DILTIAZEM CD 120 MG CAPSULE PO SCH ×2 (08:59→21:30)
[2019-12-16] MEDS: FOLIC ACID 1 MG TABLET PO SCH (09:00)
[2019-12-16] MEDS ORDERED: ZINC SULFATE 220 MG CAPSULE PO SCH (09:00)
[2019-12-16] MEDS: GABAPENTIN 100 MG CAPSULE PO SCH ×3 (09:00→21:30)
[2019-12-16] MEDS: ISOSORBIDE MONONITRATE 30 MG TABLET PO SCH (09:00)
[2019-12-16] MEDS: CITALOPRAM 20 MG TABLET PO SCH (09:00)
[2019-12-16] MEDS: SODIUM CHLORIDE 0.9% 1,000 ML IV SCH (09:01)
[2019-12-16] MEDS: HEPARIN 5,000 UNIT/1 ML VIAL SUBCUT SCH ×2 (09:01→17:58)
[2019-12-16] MEDS: ATORVASTATIN 40 MG TABLET PO SCH (21:30)
[2019-12-16] MEDS: TAMSULOSIN 0.4 MG CAPSULE PO SCH (21:30)
[2019-12-17] MEDS: HEPARIN 5,000 UNIT/1 ML VIAL SUBCUT SCH ×3 (02:00→16:20)
[2019-12-17] MEDS: SODIUM CHLORIDE 0.9% 1,000 ML IV SCH (06:17)
[2019-12-17] MEDS: ISOSORBIDE MONONITRATE 30 MG TABLET PO SCH (09:05)
[2019-12-17] MEDS: CITALOPRAM 20 MG TABLET PO SCH (09:05)
[2019-12-17] MEDS: DILTIAZEM CD 120 MG CAPSULE PO SCH ×2 (09:05→21:23)
[2019-12-17] MEDS: GABAPENTIN 100 MG CAPSULE PO SCH ×3 (09:05→21:23)
[2019-12-17] MEDS: FOLIC ACID 1 MG TABLET PO SCH (09:05)
[2019-12-17] MEDS: ASPIRIN EC 81 MG TABLET PO SCH (11:27)
[2019-12-17 14:34] LABS: Calcium 8.7 MG/DL (8.5-10.1); Osmolality,Calculated 325.9 MOS/KG (273-304); Total Protein 7.2 G/DL (6.4-8.3)
[2019-12-17 15:00] LABS: Ferritin 4075.9 ng/ml (26-388)
[2019-12-17] MEDS: TAMSULOSIN 0.4 MG CAPSULE PO SCH (21:23)
[2019-12-17] MEDS: METOPROLOL TARTRATE 100 MG TABLET PO SCH (21:23)
[2019-12-17] MEDS: ATORVASTATIN 40 MG TABLET PO SCH (21:23)
[2019-12-18] MEDS: HEPARIN 5,000 UNIT/1 ML VIAL SUBCUT SCH ×3 (00:07→16:40)
[2019-12-18] MEDS: SODIUM CHLORIDE 0.9% 1,000 ML IV SCH (01:00)
[2019-12-18 06:22] LABS: Bilirubin,Total 0.8 MG/DL (0.2-1.0); Calcium 8.2 MG/DL (8.5-10.1); Ferritin 3247.4 ng/ml (26-388); Osmolality,Calculated 328.4 MOS/KG (273-304); Total Protein 7.2 G/DL (6.4-8.3)
[2019-12-18 06:27] LABS: Basophils % 0.4 % (0.0-0.8); Eosinophils # 0.2 10*3/uL (0.0-0.87); Eosinophils % 3.1 % (0.00-10.9); Hematocrit 36.1 VOL% (42.0-52.0); Immature Granulocytes % 2.5 %; Immature Granulocytes Absolute 0.17 #; Lymphocytes # 0.8 10*3/uL (1.4-4.0); Lymphocytes % 11.7 % (21.2-54.2); Mean Corpuscular HGB Conc 30.5 GM/DL (32-36); Mean Corpuscular Volume 95.8 FL (87-102); Mean Platelet Volume 11.9 FL (9.6-12.0); Monocytes % 5.8 % (1.7-12.7); Neutrophils % 76.5 % (38.7-73.9); Platelet Count 192 T/CUMM (130-400); Red Blood Count 3.77 MC/CUMM (3.8-5.5); White Blood Count 6.7 T/CUMM (4-12)
[2019-12-18 07:39] LABS: Sedimentation Rate-Westergren 107 MM/HR (0-20)
[2019-12-18] MEDS: SODIUM CHLORIDE 0.45% 1,000 ML IV SCH (09:26)
[2019-12-18] MEDS: ASPIRIN EC 81 MG TABLET PO SCH (09:26)
[2019-12-18] MEDS: FOLIC ACID 1 MG TABLET PO SCH (09:34)
[2019-12-18] MEDS: METOPROLOL TARTRATE 100 MG TABLET PO SCH ×2 (09:34→20:18)
[2019-12-18] MEDS: ISOSORBIDE MONONITRATE 30 MG TABLET PO SCH (09:34)
[2019-12-18] MEDS: DILTIAZEM CD 120 MG CAPSULE PO SCH ×2 (09:34→20:19)
[2019-12-18] MEDS: CITALOPRAM 20 MG TABLET PO SCH (09:34)
[2019-12-18] MEDS: GABAPENTIN 100 MG CAPSULE PO SCH ×3 (09:34→20:18)
[2019-12-18] MEDS: TAMSULOSIN 0.4 MG CAPSULE PO SCH (20:18)
[2019-12-18] MEDS: ATORVASTATIN 40 MG TABLET PO SCH (20:19)
[2019-12-19] MEDS: HEPARIN 5,000 UNIT/1 ML VIAL SUBCUT SCH ×3 (00:28→16:41)
[2019-12-19] MEDS: SODIUM CHLORIDE 0.45% 1,000 ML IV SCH (04:00)
[2019-12-19 06:59] LABS: Basophils % 0.4 % (0.0-0.8); Eosinophils # 0.2 10*3/uL (0.0-0.87); Eosinophils % 2.6 % (0.00-10.9); Hematocrit 37.3 VOL% (42.0-52.0); Hemoglobin 11.3 GM/DL (14.0-18.0); Immature Granulocytes % 2.2 %; Immature Granulocytes Absolute 0.18 #; Lymphocytes # 1.1 10*3/uL (1.4-4.0); Lymphocytes % 13.1 % (21.2-54.2); Mean Corpuscular HGB Conc 30.3 GM/DL (32-36); Mean Corpuscular Volume 96.4 FL (87-102); Monocytes % 5.3 % (1.7-12.7); Neutrophils % 76.4 % (38.7-73.9); Platelet Count 206 T/CUMM (130-400); Red Blood Count 3.87 MC/CUMM (3.8-5.5); Red Cell Distribution Width 11.9 % (9.3-17.3); White Blood Count 8.1 T/CUMM (4-12)
[2019-12-19 07:40] LABS: Albumin 1.9 G/DL (3.4-5.0); Bilirubin,Total 0.7 MG/DL (0.2-1.0); Calcium 8.4 MG/DL (8.5-10.1); Osmolality,Calculated 327.4 MOS/KG (273-304); Total Protein 7.3 G/DL (6.4-8.3)
[2019-12-19 07:51] LABS: Ferritin 2635.9 ng/ml (26-388)
[2019-12-19 08:36] LABS: Sedimentation Rate-Westergren 109 MM/HR (0-20)
[2019-12-19] MEDS: DILTIAZEM CD 120 MG CAPSULE PO SCH ×2 (09:26→20:37)
[2019-12-19] MEDS: ASPIRIN EC 81 MG TABLET PO SCH (09:26)
[2019-12-19] MEDS: CITALOPRAM 20 MG TABLET PO SCH (09:27)
[2019-12-19] MEDS: FOLIC ACID 1 MG TABLET PO SCH (09:27)
[2019-12-19] MEDS: ISOSORBIDE MONONITRATE 30 MG TABLET PO SCH (09:27)
[2019-12-19] MEDS: GABAPENTIN 100 MG CAPSULE PO SCH ×3 (09:27→20:37)
[2019-12-19] MEDS: METOPROLOL TARTRATE 100 MG TABLET PO SCH ×2 (09:27→20:37)
[2019-12-19] MEDS: TAMSULOSIN 0.4 MG CAPSULE PO SCH (20:37)
[2019-12-19] MEDS: ATORVASTATIN 40 MG TABLET PO SCH (20:37)
[2019-12-20] MEDS: SODIUM CHLORIDE 0.45% 1,000 ML IV SCH (00:07)
[2019-12-20] MEDS: HEPARIN 5,000 UNIT/1 ML VIAL SUBCUT SCH ×3 (00:07→16:53)
[2019-12-20 06:49] LABS: Bilirubin,Total 1.8 MG/DL (0.2-1.0); Calcium 8.4 MG/DL (8.5-10.1); Ferritin 1958.7 ng/ml (26-388); Osmolality,Calculated 327.3 MOS/KG (273-304); Total Protein 7.4 G/DL (6.4-8.3)
[2019-12-20 07:03] LABS: Basophils % 0.4 % (0.0-0.8); Eosinophils # 0.2 10*3/uL (0.0-0.87); Eosinophils % 2.5 % (0.00-10.9); Hematocrit 39.1 VOL% (42.0-52.0); Hemoglobin 11.8 GM/DL (14.0-18.0); Immature Granulocytes % 1.9 %; Immature Granulocytes Absolute 0.16 #; Lymphocytes # 1.1 10*3/uL (1.4-4.0); Lymphocytes % 13.3 % (21.2-54.2); Mean Corpuscular HGB Conc 30.2 GM/DL (32-36); Mean Platelet Volume 11.8 FL (9.6-12.0); Monocytes % 6.1 % (1.7-12.7); Neutrophils % 75.8 % (38.7-73.9); Platelet Count 203 T/CUMM (130-400); Red Blood Count 4.03 MC/CUMM (3.8-5.5); Red Cell Distribution Width 11.9 % (9.3-17.3); White Blood Count 8.6 T/CUMM (4-12)
[2019-12-20 07:43] LABS: Sedimentation Rate-Westergren 98 MM/HR (0-20)
[2019-12-20] MEDS: METOPROLOL TARTRATE 100 MG TABLET PO SCH ×2 (09:15→21:09)
[2019-12-20] MEDS: GABAPENTIN 100 MG CAPSULE PO SCH ×3 (09:15→21:06)
[2019-12-20] MEDS: FOLIC ACID 1 MG TABLET PO SCH (09:15)
[2019-12-20] MEDS: CITALOPRAM 20 MG TABLET PO SCH (09:15)
[2019-12-20] MEDS: ISOSORBIDE MONONITRATE 30 MG TABLET PO SCH (09:15)
[2019-12-20] MEDS: DILTIAZEM CD 120 MG CAPSULE PO SCH ×2 (09:15→21:07)
[2019-12-20] MEDS: ASPIRIN EC 81 MG TABLET PO SCH (09:15)
[2019-12-20] MEDS: DEXTROSE 5% 1,000 ML IV SCH (17:07)
[2019-12-20] MEDS ORDERED: SERTRALINE 50 MG TABLET PO SCH (21:00)
[2019-12-20] MEDS: ATORVASTATIN 40 MG TABLET PO SCH (21:06)
[2019-12-20] MEDS: CYPROHEPTADINE 4 MG TABLET PO SCH (21:06)
[2019-12-20] MEDS: TAMSULOSIN 0.4 MG CAPSULE PO SCH (21:10)
[2019-12-21] MEDS: HEPARIN 5,000 UNIT/1 ML VIAL SUBCUT SCH ×3 (00:10→16:11)
[2019-12-21 07:02] LABS: Basophils % 0.4 % (0.0-0.8); Eosinophils # 0.2 10*3/uL (0.0-0.87); Eosinophils % 2.1 % (0.00-10.9); Hematocrit 41.2 VOL% (42.0-52.0); Hemoglobin 12.1 GM/DL (14.0-18.0); Immature Granulocytes Absolute 0.19 #; Lymphocytes # 1.2 10*3/uL (1.4-4.0); Lymphocytes % 12.8 % (21.2-54.2); Mean Corpuscular HGB Conc 29.4 GM/DL (32-36); Mean Corpuscular Volume 98.8 FL (87-102); Mean Platelet Volume 11.8 FL (9.6-12.0); Monocytes % 5.7 % (1.7-12.7); Platelet Count 234 T/CUMM (130-400); Red Blood Count 4.17 MC/CUMM (3.8-5.5); Red Cell Distribution Width 11.7 % (9.3-17.3); White Blood Count 9.6 T/CUMM (4-12)
[2019-12-21 08:01] LABS: Sedimentation Rate-Westergren 37 MM/HR (0-20)
[2019-12-21] MEDS: DILTIAZEM CD 120 MG CAPSULE PO SCH (09:56)
[2019-12-21] MEDS: GABAPENTIN 100 MG CAPSULE PO SCH ×2 (09:56→16:11)
[2019-12-21] MEDS: ISOSORBIDE MONONITRATE 30 MG TABLET PO SCH (09:56)
[2019-12-21] MEDS: FOLIC ACID 1 MG TABLET PO SCH (09:56)
[2019-12-21] MEDS: CYPROHEPTADINE 4 MG TABLET PO SCH (09:56)
[2019-12-21] MEDS: METOPROLOL TARTRATE 100 MG TABLET PO SCH (09:56)
[2019-12-21] MEDS: ASPIRIN EC 81 MG TABLET PO SCH (09:56)
[2019-12-21 10:04] LABS: Bilirubin,Total 0.6 MG/DL (0.2-1.0); Calcium 9.1 MG/DL (8.5-10.1); Ferritin 1762.4 ng/ml (26-388); Osmolality,Calculated 319.6 MOS/KG (273-304); Total Protein 7.8 G/DL (6.4-8.3)
[2019-12-21] MEDS: DEXTROSE 5% 1,000 ML IV SCH (13:07)
[2019-12-21 17:51] VITALS: BP 126/70
[2019-12-21] MEDS ORDERED: MIRTAZAPINE 15 MG TABLET PO SCH (21:00)
== END 2019-12-21 17:15 | DRG 177 ==
LOC: EDUNIT# → N.ED 13:44 → SUPCPDRO 16:52 → SUATTDRO 16:52 → N.EDINP 16:52 → N.2W 12-15 06:41
PROVIDERS: ADMIT Family Medicine; ATTEND Hospitalist